=== PATIENT | female | born 1950 | race Caucasian/White ===

== ENCOUNTER 2016-12-28 00:59 | Emergency (ER) | payer MEDICARE, MEDICAID ==
[~2016-12-28] VITALS: Ht 167.6 cm; Wt 60.5 kg
[~2016-12-28 00:59] MED LIST: ASPIRIN 81M81 MG/TA2 PO; ATROVENT INHALE14 GM IH; BUTALBITAL/APAP/CAFF PO; COMTAN 200MG T200 MG PO; DIGITEK0.125 MG PO; MIRALAX PA17 GM/Dose PO; PARCOPA 25/101 UDTAB PO; PREVACID 30MG30 M1 PO; TAZTIA120; XOPENEX HF0.045 MG/A IH; ZOFRAN 4MG T4 MG/TAB PO
[2016-12-28 01:00] VITALS: TEMP 98.1
[2016-12-28 03:04] LABS: BASO % 0.3 % (0.0-2.0); EOS # 0.1 (0.0-0.7); EOS % 1.5 % (0-4.0); GRAN # 4.6 (1.4-6.5); GRAN % 67.8 % (42.2-75.2); HEMATOCRIT 41.8 % (37.0-47.0); HEMOGLOBIN 13.8 g/dl (12.5-16.0); LYMPH # 1.7 (1.2-3.4); LYMPH % 24.6 % (20.0-51.0); MEAN CELL VOLUME 84 fl (80.0-100.0); MEAN CORPUSCULAR HEMOGLOBIN 28 pg (27.0-31.0); MEAN CORPUSCULAR HGB CONC 33 g/dl (33.0-37.0); MEAN PLATELET VOLUME 9.5 fl (7.4-10.4); MONO # 0.4 (0.1-0.6); MONO % 5.5 % (1.7-9.3); PLATELET COUNT 236 K/mm3 (130-400); RED BLOOD COUNT 4.96 M/mm3 (4.10-5.30); REDCELL DISTRIBUTION WIDTH-CV 13.3 % (11.5-14.5); WHITE BLOOD COUNT 6.8 K/mm3 (4.8-10.8)
[2016-12-28 03:12] LABS: ADJUSTED CALCIUM 9.4 mg/dL (8.4-10.2); ALANINE AMINOTRANSFERASE 13 U/L (9-52); ALBUMIN 4.1 gm/dL (3.5-5.0); ALKALINE PHOSPHATASE 115 U/L (50-136); ANION GAP 14 mmol/L (7-16); BILIRUBIN,TOTAL 0.6 mg/dL (0.0-1.0); BLOOD UREA NITROGEN 21 mg/dL (7-17); CALCIUM 9.5 mg/dL (8.4-10.2); CARBON DIOXIDE 27 mmol/L (22-30); CHLORIDE 102 mmol/L (98-107); CREATININE, serum 0.67 mg/dL (0.52-1.25); GLUCOSE 187 mg/dL (74-106); POTASSIUM 3.1 mmol/L (3.4-5.0); SODIUM 143 mmol/L (137-145); TOTAL PROTEIN 7.4 gm/dL (6.4-8.2)
[2016-12-28 03:28] LABS: TROPONIN-I < 0.012 ng/mL (0.000-0.034)
[2016-12-28] MEDS ORDERED: PREDNISONE10 MG PO (04:45)
[2016-12-28] MEDS ORDERED: TUSS PO (04:45)
[2016-12-28] MEDS ORDERED: PREDNISONE20 MG PO (04:52)
[2016-12-28 05:11] VITALS: BP 138/70; PULSE 88
== END 2016-12-28 05:12 | disposition home or self-care (01) ==
LOC: COL.ER 00:59
PROVIDERS: Emergency Medicine
DX: R06.02 Shortness of breath (principal); R07.9 Chest pain, unspecified; R00.0 Tachycardia, unspecified
CPT/HCPCS: J7512

== ENCOUNTER 2017-02-03 11:47 | Emergency (ER) | payer MEDICARE, MEDICAID ==
[~2017-02-03] VITALS: Ht 167.6 cm; Wt 59.1 kg
[~2017-02-03 11:47] MED LIST changes: +PREDNISONE10 MG PO; +PREDNISONE20 MG PO; +TUSS PO
[2017-02-03 11:53] VITALS: TEMP 99.4
[2017-02-03 13:23] LABS: BASO # 0.1 (0.0-0.2); BASO % 0.7 % (0.0-2.0); EOS # 0.1 (0.0-0.7); EOS % 1.6 % (0-4.0); GRAN # 4.9 (1.4-6.5); HEMATOCRIT 43.5 % (37.0-47.0); HEMOGLOBIN 14.1 g/dl (12.5-16.0); LYMPH # 1.3 (1.2-3.4); LYMPH % 19.1 % (20.0-51.0); MEAN CELL VOLUME 86 fl (80.0-100.0); MEAN CORPUSCULAR HEMOGLOBIN 28 pg (27.0-31.0); MEAN CORPUSCULAR HGB CONC 32 g/dl (33.0-37.0); MEAN PLATELET VOLUME 9.6 fl (7.4-10.4); MONO # 0.4 (0.1-0.6); MONO % 5.3 % (1.7-9.3); PLATELET COUNT 269 K/mm3 (130-400); RED BLOOD COUNT 5.09 M/mm3 (4.10-5.30); REDCELL DISTRIBUTION WIDTH-CV 13.2 % (11.5-14.5); WHITE BLOOD COUNT 6.8 K/mm3 (4.8-10.8)
[2017-02-03 13:36] LABS: ADJUSTED CALCIUM 9.2 mg/dL (8.4-10.2); ALBUMIN 4.3 gm/dL (3.5-5.0); BILIRUBIN,TOTAL 0.8 mg/dL (0.0-1.0); CALCIUM 9.4 mg/dL (8.4-10.2); CREATININE, serum 0.63 mg/dL (0.52-1.25); POTASSIUM 4.1 mmol/L (3.4-5.0); TOTAL PROTEIN 7.4 gm/dL (6.4-8.2)
[2017-02-03 14:02] LABS: PH 5 (5-8); SQUAMOUS EPITHELIAL 0-2 /hpf; URINE APPEARANCE Clear; URINE BACTERIA None Seen /hpf; URINE BILIRUBIN Negative (NEGATIVE); URINE BLOOD Negative (NEGATIVE); URINE COLOR Amber; URINE GLUCOSE Negative (NEGATIVE); URINE KETONE Trace (NEGATIVE); URINE RBC 0-2 /hpf; URINE UROBILINOGEN Negative (NEGATIVE)
[2017-02-03 15:28] VITALS: BP 134/78; PULSE 79
== END 2017-02-03 15:45 | disposition home or self-care (01) ==
LOC: COL.ER 11:47
PROVIDERS: Emergency Medicine
DX: K59.00 Constipation, unspecified (principal); G20 Parkinson's disease
CPT/HCPCS: J7030; Q9967

== ENCOUNTER → 2017-02-10 | Outpatient (CLI) | payer MEDICARE, MEDICAID ==
[~2017-02-10] VITALS: Ht 167.6 cm; Wt 60.0 kg
[~2017-02-10] MED LIST changes: +AMITIZA24 MCG PO; +DOXYCYCLINE 10100 MG PO; +FIORINAL W/CODE1 CA2 PO; +TUDORZA IH
[2017-02-10 15:49] VITALS: BP 103/87; PULSE 92; TEMP 98.2
== END ==
LOC: EUO 14:59
DX: K59.09 Other constipation (principal); G20 Parkinson's disease

== ENCOUNTER → 2017-02-20 | Outpatient (CLI) | payer MEDICARE, MEDICAID | LOC: COL.RAD 09:52 | DX: K59.09 Other constipation (principal) ==

== ENCOUNTER → 2017-02-25 | Outpatient (CLI) | payer MEDICARE, MEDICAID | LOC: COL.RAD 09:50 | DX: K59.09 Other constipation (principal) ==

== ENCOUNTER 2017-03-15 19:15 | Emergency (ER) | payer MEDICARE, MEDICAID ==
[~2017-03-15] VITALS: Ht 167.6 cm; Wt 56.8 kg
[~2017-03-15 19:15] MED LIST changes: -AMITIZA24 MCG PO; -DOXYCYCLINE 10100 MG PO; -FIORINAL W/CODE1 CA2 PO; -TUDORZA IH
[2017-03-15] MEDS ORDERED: TUDORZA IH (19:38)
[2017-03-15] MEDS ORDERED: FIORINAL W/CODE1 CA2 PO (19:40)
[2017-03-15] MEDS ORDERED: AMITIZA24 MCG PO (19:41)
[2017-03-15 20:09] VITALS: TEMP 100
[2017-03-15 20:15] LABS: BASO # 0.1 (0.0-0.2); BASO % 0.8 % (0.0-2.0); EOS # 0.3 (0.0-0.7); EOS % 3.4 % (0-4.0); GRAN % 52.5 % (42.2-75.2); HEMATOCRIT 41.1 % (37.0-47.0); HEMOGLOBIN 13.8 g/dl (12.5-16.0); LYMPH # 2.8 (1.2-3.4); LYMPH % 36.6 % (20.0-51.0); MEAN CELL VOLUME 83 fl (80.0-100.0); MEAN CORPUSCULAR HEMOGLOBIN 28 pg (27.0-31.0); MEAN CORPUSCULAR HGB CONC 34 g/dl (33.0-37.0); MEAN PLATELET VOLUME 9.9 fl (7.4-10.4); MONO # 0.5 (0.1-0.6); MONO % 6.3 % (1.7-9.3); PLATELET COUNT 266 K/mm3 (130-400); RED BLOOD COUNT 4.93 M/mm3 (4.10-5.30); REDCELL DISTRIBUTION WIDTH-CV 13.5 % (11.5-14.5); WHITE BLOOD COUNT 7.6 K/mm3 (4.8-10.8)
[2017-03-15 20:20] LABS: ADJUSTED CALCIUM 8.9 mg/dL (8.4-10.2); ALANINE AMINOTRANSFERASE 13 U/L (9-52); ALBUMIN 4.2 gm/dL (3.5-5.0); ALKALINE PHOSPHATASE 116 U/L (50-136); ANION GAP 10 mmol/L (7-16); BILIRUBIN,TOTAL 0.8 mg/dL (0.0-1.0); BLOOD UREA NITROGEN 14 mg/dL (7-17); CALCIUM 9.1 mg/dL (8.4-10.2); CARBON DIOXIDE 27 mmol/L (22-30); CHLORIDE 102 mmol/L (98-107); CREATININE, serum 0.65 mg/dL (0.52-1.25); GLUCOSE 89 mg/dL (74-106); LIPASE 48 U/L (23-300); POTASSIUM 4.2 mmol/L (3.4-5.0); SODIUM 138 mmol/L (137-145); TOTAL PROTEIN 7.2 gm/dL (6.4-8.2)
[2017-03-15 20:32] LABS: B-TYPE NATRIURETIC PEPTIDE 136 pg/mL (0-125); TROPONIN-I < 0.012 ng/mL (0.000-0.034)
[2017-03-15 20:43] LABS: DIGOXIN 0.9 ng/mL (0.8-2.0)
[2017-03-15] MEDS ORDERED: XOPENEX HF0.045 MG/A IH ×2 (21:21→21:27)
[2017-03-15] MEDS ORDERED: DOXYCYCLINE 10100 MG PO (21:27)
[2017-03-15 22:03] VITALS: BP 106/65; PULSE 86
== END 2017-03-15 22:03 | disposition home or self-care (01) ==
LOC: COL.ER 19:15
PROVIDERS: Emergency Medicine
DX: J44.0 Chronic obstructive pulmonary disease with (acute) lower respiratory infection (principal); J20.9 Acute bronchitis, unspecified; J44.1 Chronic obstructive pulmonary disease with (acute) exacerbation; Z87.891 Personal history of nicotine dependence; G43.909 Migraine, unspecified, not intractable, without status migrainosus; G20 Parkinson's disease
CPT/HCPCS: J7030; J8540

== ENCOUNTER → 2017-05-09 | Outpatient (CLI) | payer MEDICARE, MEDICAID ==
[~2017-05-09] MED LIST changes: +AMITIZA24 MCG PO; +DOXYCYCLINE 10100 MG PO; +FIORINAL W/CODE1 CA2 PO; +TUDORZA IH
== END ==
LOC: COL.PUL 13:00
DX: R06.02 Shortness of breath (principal); Z87.891 Personal history of nicotine dependence

== ENCOUNTER 2017-05-17 17:45 | Emergency (ER) | payer MEDICARE, MEDICAID ==
[~2017-05-17] VITALS: Ht 167.6 cm; Wt 56.8 kg
[2017-05-17 17:53] VITALS: TEMP 99.1
[2017-05-17 18:43] LABS: BASO # 0.1 (0.0-0.2); BASO % 0.8 % (0.0-2.0); EOS # 0.2 (0.0-0.7); EOS % 2.7 % (0-4.0); GRAN # 4.7 (1.4-6.5); GRAN % 63.8 % (42.2-75.2); HEMOGLOBIN 14.3 g/dl (12.5-16.0); LYMPH % 26.5 % (20.0-51.0); MEAN CELL VOLUME 85 fl (80.0-100.0); MEAN CORPUSCULAR HEMOGLOBIN 28 pg (27.0-31.0); MEAN CORPUSCULAR HGB CONC 33 g/dl (33.0-37.0); MEAN PLATELET VOLUME 9.8 fl (7.4-10.4); MONO # 0.4 (0.1-0.6); MONO % 5.9 % (1.7-9.3); PLATELET COUNT 251 K/mm3 (130-400); RED BLOOD COUNT 5.06 M/mm3 (4.10-5.30); REDCELL DISTRIBUTION WIDTH-CV 13.3 % (11.5-14.5); WHITE BLOOD COUNT 7.4 K/mm3 (4.8-10.8)
[2017-05-17 19:03] LABS: ADJUSTED CALCIUM 9.1 mg/dL (8.4-10.2); ALBUMIN 4.5 gm/dL (3.5-5.0); BILIRUBIN,TOTAL 0.7 mg/dL (0.0-1.0); C-REACTIVE PROTEIN 1.5 mg/dL (0.0-0.9); CALCIUM 9.5 mg/dL (8.4-10.2); CREATININE, serum 0.69 mg/dL (0.52-1.25); TOTAL PROTEIN 7.5 gm/dL (6.4-8.2)
[2017-05-17 19:09] LABS: ERYTHROCYTE SEDIMENTATION RATE 4 mm/hr (0-30)
[2017-05-17 19:37] VITALS: BP 124/78; PULSE 64
== END 2017-05-17 19:38 | disposition home or self-care (01) ==
LOC: COL.ER 17:45
PROVIDERS: Emergency Medicine
DX: H57.13 Ocular pain, bilateral (principal); I10 Essential (primary) hypertension; J44.9 Chronic obstructive pulmonary disease, unspecified; G20 Parkinson's disease; Z79.82 Long term (current) use of aspirin; Z87.891 Personal history of nicotine dependence; Z87.39 Personal history of other diseases of the musculoskeletal system and connective tissue

== ENCOUNTER → 2017-07-14 | Outpatient (CLI) | payer MEDICARE, MEDICAID | LOC: COL.RAD 07-07 11:00 | DX: M62.81 Muscle weakness (generalized) (principal); J98.8 Other specified respiratory disorders ==

== ENCOUNTER 2018-01-13 15:38 | Emergency (ER) | payer MEDICARE, MEDICAID ==
[~2018-01-13] VITALS: Ht 167.6 cm; Wt 54.5 kg
[2018-01-13 15:50] VITALS: TEMP 98.6
[2018-01-13 16:13] LABS: BASO % 0.6 % (0.0-2.0); EOS # 0.1 (0.0-0.7); EOS % 1.7 % (0-4.0); GRAN # 3.9 (1.4-6.5); GRAN % 59.5 % (42.2-75.2); HEMOGLOBIN 14.5 g/dl (12.5-16.0); LYMPH # 2.1 (1.2-3.4); LYMPH % 31.4 % (20.0-51.0); MEAN CELL VOLUME 85 fl (80.0-100.0); MEAN CORPUSCULAR HEMOGLOBIN 29 pg (27.0-31.0); MEAN CORPUSCULAR HGB CONC 35 g/dl (33.0-37.0); MEAN PLATELET VOLUME 9.7 fl (7.4-10.4); MONO # 0.4 (0.1-0.6); MONO % 6.6 % (1.7-9.3); PLATELET COUNT 260 K/mm3 (130-400); RED BLOOD COUNT 4.96 M/mm3 (4.10-5.30)
[2018-01-13 16:26] LABS: ALANINE AMINOTRANSFERASE 19 U/L (9-52); ALBUMIN 4.1 gm/dL (3.5-5.0); ALKALINE PHOSPHATASE 131 U/L (50-136); ANION GAP 12 mmol/L (7-16); AST,SGOT 14 U/L (15-37); BILIRUBIN,TOTAL 0.5 mg/dL (0.0-1.0); BLOOD UREA NITROGEN 12 mg/dL (7-17); C-REACTIVE PROTEIN 1.5 mg/dL (0.0-0.9); CALCIUM 9.3 mg/dL (8.4-10.2); CARBON DIOXIDE 27 mmol/L (22-30); CHLORIDE 102 mmol/L (98-107); CREATININE, serum 0.67 mg/dL (0.52-1.25); GLUCOSE 119 mg/dL (74-106); LIPASE 62 U/L (23-300); POTASSIUM 3.8 mmol/L (3.4-5.0); SODIUM 140 mmol/L (137-145); TOTAL PROTEIN 7.6 gm/dL (6.4-8.2)
[2018-01-13 16:31] LABS: DIGOXIN 0.8 ng/mL (0.8-2.0)
[2018-01-13 16:36] LABS: TROPONIN-I < 0.012 ng/mL (0.000-0.034)
[2018-01-13] MEDS ORDERED: SINEMET CR 50 M1 TER PO (17:34)
[2018-01-13] MEDS ORDERED: SYMMETREL100 M1 PO (17:35)
[2018-01-13] MEDS ORDERED: XOPENEX HF0.045 MG/A IH (17:36)
[2018-01-13] MEDS ORDERED: BACTROBAN NASA0.9 GM NS (17:36)
[2018-01-13 18:22] VITALS: BP 139/60; PULSE 72
== END 2018-01-13 18:26 | disposition home or self-care (01) ==
LOC: COL.ER 15:38
PROVIDERS: Emergency Medicine
DX: R07.89 Other chest pain (principal); R06.00 Dyspnea, unspecified; I10 Essential (primary) hypertension; J44.9 Chronic obstructive pulmonary disease, unspecified; G20 Parkinson's disease; Z87.39 Personal history of other diseases of the musculoskeletal system and connective tissue; Z87.891 Personal history of nicotine dependence; Z79.82 Long term (current) use of aspirin

== ENCOUNTER 2018-02-17 09:52 | Day surgery (SDC) | payer MEDICARE, MEDICAID ==
[~2018-02-17] VITALS: Ht 165.1 cm; Wt 52.5 kg
[~2018-02-17 09:52] MED LIST changes: +BACTROBAN NASA0.9 GM NS; +SINEMET CR 50 M1 TER PO; +SYMMETREL100 M1 PO
[2018-02-17 10:41] VITALS: BP 122/69; PULSE 84; TEMP 98.5
[2018-02-17 12:15] VITALS: BP 77/66; PULSE 73
[2018-02-17 12:30] VITALS: BP 83/65; PULSE 74
[2018-02-17 12:51] VITALS: BP 94/51; PULSE 64
== END 2018-02-17 12:35 ==
LOC: SDCO 09:52
DX: K31.7 Polyp of stomach and duodenum (principal); K29.30 Chronic superficial gastritis without bleeding; G20 Parkinson's disease; J44.9 Chronic obstructive pulmonary disease, unspecified; M79.7 Fibromyalgia; Z79.899 Other long term (current) drug therapy
CPT/HCPCS: OP; J2250; J2704; J3010; J7030

== ENCOUNTER 2018-03-30 09:03 | Outpatient (RCR) | payer MEDICARE, MEDICAID ==
[2018-04-22] MEDS ORDERED: FLEXERIL 1010 MG/TAB PO (15:27)
== END 2018-06-28 | disposition home or self-care (01) ==
LOC: WSST
DX: R13.10 Dysphagia, unspecified (principal); G20 Parkinson's disease
CPT/HCPCS: G8996-GN; G8997-GN

== ENCOUNTER → 2018-04-13 | Outpatient (CLI) | payer MEDICARE, MEDICAID | LOC: COL.RAD 08:18 | DX: G20 Parkinson's disease (principal) | CPT/HCPCS: G8996-GN; G8997-GN; G8998-GN ==

== ENCOUNTER 2018-04-22 12:46 | Emergency (ER) | payer MEDICARE, MEDICAID ==
[~2018-04-22] VITALS: Ht 165.1 cm; Wt 50.5 kg
[2018-04-22 12:50] VITALS: BP 111/51; PULSE 71; TEMP 98.3
[2018-04-22] MEDS ORDERED: FLEXERIL 1010 MG/TAB PO (15:27)
== END 2018-04-22 15:34 | disposition home or self-care (01) ==
LOC: COL.ER 12:46
DX: M25.551 Pain in right hip (principal); M62.838 Other muscle spasm; M79.7 Fibromyalgia; G43.909 Migraine, unspecified, not intractable, without status migrainosus; K21.9 Gastro-esophageal reflux disease without esophagitis; M17.10 Unilateral primary osteoarthritis, unspecified knee; G20 Parkinson's disease; Z98.890 Other specified postprocedural states; Z90.49 Acquired absence of other specified parts of digestive tract; Z90.710 Acquired absence of both cervix and uterus; Z79.82 Long term (current) use of aspirin

== ENCOUNTER 2018-05-04 22:36 | Emergency (ER) | payer MEDICARE, MEDICAID ==
[~2018-05-04] VITALS: Ht 165.1 cm; Wt 50.5 kg
[~2018-05-04 22:36] MED LIST changes: +FLEXERIL 1010 MG/TAB PO
[2018-05-04 22:42] VITALS: BP 134/68; TEMP 97.7
[2018-05-04 23:31] LABS: COLLECTION METHOD CLEAN CATCH
[2018-05-04 23:34] LABS: BASO # 0.1 (0.0-0.2); BASO % 0.6 % (0.0-2.0); EOS # 0.2 (0.0-0.7); EOS % 2.9 % (0-4.0); GRAN # 5.3 (1.4-6.5); GRAN % 67.6 % (42.2-75.2); HEMATOCRIT 42.7 % (37.0-47.0); HEMOGLOBIN 14.5 g/dl (12.5-16.0); LYMPH # 1.8 (1.2-3.4); LYMPH % 23.3 % (20.0-51.0); MEAN CELL VOLUME 87 fl (80.0-100.0); MEAN CORPUSCULAR HEMOGLOBIN 30 pg (27.0-31.0); MEAN CORPUSCULAR HGB CONC 34 g/dl (33.0-37.0); MEAN PLATELET VOLUME 9.6 fl (7.4-10.4); MONO # 0.4 (0.1-0.6); MONO % 5.2 % (1.7-9.3); PLATELET COUNT 251 K/mm3 (130-400); REDCELL DISTRIBUTION WIDTH-CV 13.2 % (11.5-14.5)
[2018-05-04 23:38] LABS: MUCOUS Present /lpf; PH 6 (5-8); SQUAMOUS EPITHELIAL 0-2 /hpf; URINE APPEARANCE Clear; URINE BACTERIA None Seen /hpf; URINE BILIRUBIN Negative (NEGATIVE); URINE BLOOD Negative (NEGATIVE); URINE COLOR Yellow; URINE GLUCOSE Negative (NEGATIVE); URINE KETONE Negative (NEGATIVE); URINE LEUKOCYTE ESTERASE Negative (NEGATIVE); URINE NITRATE Negative (NEGATIVE); URINE PROTEIN(semi-quant) Negative (NEGATIVE); URINE RBC 0-2 /hpf; URINE UROBILINOGEN Negative (NEGATIVE)
[2018-05-04 23:56] LABS: ALANINE AMINOTRANSFERASE 14 U/L (9-52); ALBUMIN 4.2 gm/dL (3.5-5.0); ALKALINE PHOSPHATASE 116 U/L (50-136); ANION GAP 7 mmol/L (7-16); AST,SGOT 19 U/L (15-37); BILIRUBIN,TOTAL 0.5 mg/dL (0.0-1.0); BLOOD UREA NITROGEN 20 mg/dL (7-17); CALCIUM 9.2 mg/dL (8.4-10.2); CARBON DIOXIDE 29 mmol/L (22-30); CHLORIDE 102 mmol/L (98-107); CREATININE, serum 0.68 mg/dL (0.52-1.25); GLUCOSE 108 mg/dL (74-106); MAGNESIUM 2.1 mg/dL (1.6-2.3); PHOSPHOROUS 3.9 mg/dL (2.5-4.5); SODIUM 138 mmol/L (137-145); TOTAL PROTEIN 7.2 gm/dL (6.4-8.2)
[2018-05-05 00:05] LABS: TROPONIN-I < 0.012 ng/mL (0.000-0.034)
[2018-05-05 01:05] LABS: DIGOXIN 0.6 ng/mL (0.8-2.0)
[2018-05-05 02:05] VITALS: PULSE 73
== END 2018-05-05 02:05 | disposition home or self-care (01) ==
LOC: COL.ER 22:36
PROVIDERS: Emergency Medicine
DX: R53.81 Other malaise (principal); R53.83 Other fatigue; G20 Parkinson's disease; M79.7 Fibromyalgia; G43.909 Migraine, unspecified, not intractable, without status migrainosus; M19.90 Unspecified osteoarthritis, unspecified site; R11.10 Vomiting, unspecified; R19.7 Diarrhea, unspecified; K59.00 Constipation, unspecified; Z79.82 Long term (current) use of aspirin; Z90.710 Acquired absence of both cervix and uterus; Z90.49 Acquired absence of other specified parts of digestive tract; Z98.890 Other specified postprocedural states
CPT/HCPCS: J0780; J7030

== ENCOUNTER 2018-10-02 12:27 | Emergency (ER) | payer MEDICARE, MEDICAID ==
[~2018-10-02] VITALS: Ht 165.1 cm; Wt 53.6 kg
[2018-10-02 12:31] VITALS: TEMP 98.4
[2018-10-02 14:08] LABS: COLLECTION METHOD CLEAN CATCH
[2018-10-02 14:15] LABS: MUCOUS Present /lpf; PH 5 (5-8); SQUAMOUS EPITHELIAL 0-2 /hpf; URINE APPEARANCE Clear; URINE BACTERIA None Seen /hpf; URINE BILIRUBIN Positive (NEGATIVE); URINE BLOOD Negative (NEGATIVE); URINE COLOR Amber; URINE GLUCOSE Negative (NEGATIVE); URINE KETONE Trace (NEGATIVE); URINE LEUKOCYTE ESTERASE 1+ (NEGATIVE); URINE NITRATE Negative (NEGATIVE); URINE PROTEIN(semi-quant) 1+ (NEGATIVE); URINE RBC None Seen /hpf; URINE UROBILINOGEN Negative (NEGATIVE)
[2018-10-02 14:50] LABS: BASO # 0.1 (0.0-0.2); BASO % 0.7 % (0.0-2.0); EOS # 0.2 (0.0-0.7); EOS % 2.7 % (0-4.0); GRAN # 4.5 (1.4-6.5); GRAN % 63.5 % (42.2-75.2); HEMOGLOBIN 15.4 g/dl (12.5-16.0); LYMPH # 1.9 (1.2-3.4); LYMPH % 26.4 % (20.0-51.0); MEAN CELL VOLUME 90 fl (80.0-100.0); MEAN CORPUSCULAR HEMOGLOBIN 30 pg (27.0-31.0); MEAN CORPUSCULAR HGB CONC 34 g/dl (33.0-37.0); MEAN PLATELET VOLUME 9.6 fl (7.4-10.4); MONO # 0.5 (0.1-0.6); MONO % 6.4 % (1.7-9.3); PLATELET COUNT 247 K/mm3 (130-400); RED BLOOD COUNT 5.13 M/mm3 (4.10-5.30); REDCELL DISTRIBUTION WIDTH-CV 12.7 % (11.5-14.5)
[2018-10-02 14:53] LABS: ALBUMIN 4.4 gm/dL (3.5-5.0); BILIRUBIN,TOTAL 0.8 mg/dL (0.0-1.0); CALCIUM 9.5 mg/dL (8.4-10.2); CREATININE, serum 0.74 mg/dL (0.52-1.25); POTASSIUM 4.2 mmol/L (3.4-5.0); TOTAL PROTEIN 7.3 gm/dL (6.4-8.2)
[2018-10-02] MEDS ORDERED: CARAFATE 1GM1 G PO (17:20)
[2018-10-02] MEDS ORDERED: COLACE 100100 MG/CAP PO (18:18)
[2018-10-02 18:45] VITALS: BP 123/59; PULSE 67
== END 2018-10-02 18:45 | disposition home or self-care (01) ==
LOC: COL.ER 12:27
PROVIDERS: Emergency Medicine
DX: R10.13 Epigastric pain (principal); Z79.82 Long term (current) use of aspirin
CPT/HCPCS: J2405; J7030; Q9967

== ENCOUNTER → 2021-01-26 | Outpatient (CLI) | payer MEDICARE, MEDICAID ==
[~2021-01-26] MED LIST changes: +BACTROBAN15 GM TOP; +CARAFATE 1GM1 G PO; +COLACE 100100 MG/CAP PO; +MOVANTIK25 MG PO; +NIZORAL SHAMPO120 M1 TP; +NORCO 325 MG-51 TAB PO; +TRULANCE3 MG PO; +WOMEN'S DAILY F1 TAB PO; +ZEBETA 5MG5 MG PO
== END ==
LOC: MC.RAD 13:11
DX: Z12.31 Encounter for screening mammogram for malignant neoplasm of breast (principal); N64.89 Other specified disorders of breast

== ENCOUNTER → 2021-01-29 | Outpatient (CLI) | payer MEDICARE, MEDICAID | LOC: MHCPAIN 10:42 | DX: M47.812 Spondylosis without myelopathy or radiculopathy, cervical region (principal); M54.2 Cervicalgia; M54.81 Occipital neuralgia; R51.9 Headache, unspecified; G20 Parkinson's disease | CPT/HCPCS: G0463 ==

== ENCOUNTER → 2021-02-02 | Outpatient (CLI) | payer MEDICARE, MEDICAID | LOC: MC.RAD 13:44 | DX: N64.89 Other specified disorders of breast (principal) ==

== ENCOUNTER → 2021-02-27 | Outpatient (CLI) | payer MEDICARE, MEDICAID | LOC: MHCPAIN 12:52 | DX: M54.81 Occipital neuralgia (principal); M54.2 Cervicalgia; R51.9 Headache, unspecified | CPT/HCPCS: J1100 ==

== ENCOUNTER 2021-05-31 11:43 | Emergency (ER) | payer MEDICARE, MEDICAID ==
[~2021-05-31] VITALS: Ht 167.6 cm; Wt 59.1 kg
[~2021-05-31 11:43] MED LIST changes: -BACTROBAN15 GM TOP; -MOVANTIK25 MG PO; -NIZORAL SHAMPO120 M1 TP; -NORCO 325 MG-51 TAB PO; -TRULANCE3 MG PO; -WOMEN'S DAILY F1 TAB PO; -ZEBETA 5MG5 MG PO
[2021-05-31 12:01] VITALS: TEMP 97.8
[2021-05-31] MEDS ORDERED: DIGITEK0.125 MG PO ×2 (12:40→12:41)
[2021-05-31] MEDS ORDERED: ZEBETA 5MG5 MG PO (12:43)
[2021-05-31] MEDS ORDERED: MIRALAX PA17 GM/Dose PO (12:43)
[2021-05-31] MEDS ORDERED: TRULANCE3 MG PO (12:45)
[2021-05-31] MEDS ORDERED: NIZORAL SHAMPO120 M1 TP (12:46)
[2021-05-31] MEDS ORDERED: MOVANTIK25 MG PO (12:46)
[2021-05-31] MEDS ORDERED: BACTROBAN15 GM TOP (12:46)
[2021-05-31] MEDS ORDERED: WOMEN'S DAILY F1 TAB PO (12:47)
[2021-05-31] MEDS ORDERED: NORCO 325 MG-51 TAB PO ×3 (12:51→13:18)
[2021-05-31 13:30] VITALS: BP 154/97; PULSE 89
== END 2021-05-31 13:23 | disposition home or self-care (01) ==
LOC: COL.ER 11:43
DX: M25.511 Pain in right shoulder (principal); G20 Parkinson's disease; G43.909 Migraine, unspecified, not intractable, without status migrainosus; Z88.6 Allergy status to analgesic agent; Z87.891 Personal history of nicotine dependence; Z79.82 Long term (current) use of aspirin; Z79.899 Other long term (current) drug therapy

== ENCOUNTER 2022-05-02 18:34 | Emergency (ER) | payer MEDICARE, MEDICAID ==
[~2022-05-02] VITALS: Ht 167.6 cm; Wt 58.6 kg
[~2022-05-02 18:34] MED LIST changes: +BACTROBAN15 GM TOP; +MOVANTIK25 MG PO; +NIZORAL SHAMPO120 M1 TP; +NORCO 325 MG-51 TAB PO; +TRULANCE3 MG PO; +WOMEN'S DAILY F1 TAB PO; +ZEBETA 5MG5 MG PO
[2022-05-02 18:42] VITALS: TEMP 98.4
[2022-05-02 20:05] VITALS: BP 109/64; PULSE 66
== END 2022-05-02 20:00 | disposition home or self-care (01) ==
LOC: COL.ER 18:34
DX: M79.651 Pain in right thigh (principal); Z87.891 Personal history of nicotine dependence

== ENCOUNTER → 2022-05-03 | Outpatient (CLI) | payer MEDICARE, MEDICAID | LOC: COL.VAS 07:52 | DX: M79.651 Pain in right thigh (principal); M79.89 Other specified soft tissue disorders ==

== ENCOUNTER → 2023-10-17 | Outpatient (CLI) | payer MEDICARE ==
[2023-10-17 10:47] LABS: COLLECTION METHOD CLEAN CATCH
[2023-10-17 11:27] LABS: PH 5.5 (5.0-8.5); URINE APPEARANCE Clear (CLEAR/HAZY); URINE BLOOD Negative (NEGATIVE); URINE COLOR Yellow (YELLOW); URINE GLUCOSE Negative (NEGATIVE); URINE KETONE TRACE (NEGATIVE); URINE NITRATE Negative (NEGATIVE); URINE PROTEIN(semi-quant) Negative (NEGATIVE); URINE UROBILINOGEN 0.2 E.U/dL (0.2-1.0)
[2023-10-17 11:28] LABS: MUCOUS Present (NOT PRESENT); URINE BACTERIA Rare /hpf (NONE SEEN); URINE RBC 0-2 /hpf (0-2)
== END ==
LOC: ZCOL.LAB 10:45
PROVIDERS: Internal Medicine
DX: N39.0 Urinary tract infection, site not specified (principal)

== ENCOUNTER → 2023-11-17 | Outpatient (REF) | payer MEDICARE ==
[2023-11-17 17:01] LABS: CALCIUM 9.7 mg/dL (8.4-10.2); CREATININE, serum 0.79 mg/dL (0.57-1.11); POTASSIUM 4.1 mmol/L (3.5-4.5)
== END ==
LOC: ZCOL.LAB 15:09
PROVIDERS: Internal Medicine
DX: G20.A2 Parkinson's disease without dyskinesia, with fluctuations (principal); E11.59 Type 2 diabetes mellitus with other circulatory complications; R10.84 Generalized abdominal pain; E83.42 Hypomagnesemia

== ENCOUNTER → 2024-01-06 | Outpatient (CLI) | payer MEDICARE | LOC: MC.RAD 15:42 | DX: Z12.31 Encounter for screening mammogram for malignant neoplasm of breast (principal) ==

== ENCOUNTER → 2024-05-03 | Outpatient (CLI) | payer MEDICARE, MEDICAID ==
[~2024-05-03] MED LIST changes: +AYR SALINE MIST50 ML NS; +BIOTENE DRY M1000 ML MM; +DEBROX OT; +DULCOLAX S10 MG/SUPP RC; +Iohexol 300 - 100 ML VIAL IV ONE; +LANOXIN 0.120.125 MG PO; +NS 100 ML IV SCH; +TYLENOL SU650 MG/SUP RC
== END ==
LOC: COL.RAD 14:09
DX: G45.9 Transient cerebral ischemic attack, unspecified (principal); H53.9 Unspecified visual disturbance; R40.4 Transient alteration of awareness
CPT/HCPCS: Q9967

== ENCOUNTER → 2024-07-07 | Outpatient (REF) | payer MEDICARE, MEDICAID ==
[~2024-07-07] MED LIST changes: -Iohexol 300 - 100 ML VIAL IV ONE; -NS 100 ML IV SCH
== END ==
LOC: ZCOL.LAB 16:05
PROVIDERS: Physician Assistant
DX: E61.1 Iron deficiency (principal)